=== PATIENT | female | born 1970 | race Caucasian/White ===

== ENCOUNTER 2017-09-10 15:18 | Emergency (ER) | payer MEDICAID ==
[2017-09-10 15:28] VITALS: PULSE 80; RESP 18; TEMP 98.4; O2SAT 100; BMI 35.2
[2017-09-10] MEDS ORDERED: DiphenhydrAMINE 50 mg/ml Inj IVP STA (16:03)
[2017-09-10] MEDS ORDERED: Sodium Chloride 0.9% 1,000 ML IV SCH (16:15)
[2017-09-10] MEDS ORDERED: SODIUM CHLORIDE 0.9% IV STA (16:23)
[2017-09-10] MEDS ORDERED: METOCLOPRAMIDE IV STA (16:23)
[2017-09-10 16:43] LABS: ALB/GLOB RATIO 1.2 (1.1-1.8); ALKALINE PHOSPHATASE 72 U/L (38-126); ALT/SGPT 37 U/L (7-56); AST/SGOT 26 U/L (14-36); BILIRUBIN,TOTAL 0.6 mg/dL (0.2-1.3); BLOOD UREA NITROGEN 11 mg/dL (7-21); CALCIUM 10.2 mg/dL (8.4-10.5); CARBON DIOXIDE 30 mmol/L (21-33); CHLORIDE 102 mmol/L (98-107); GFR AFRICAN-AMERICAN > 60; GLUCOSE,RANDOM 113 mg/dL (70-110); POTASSIUM 3.5 mmol/L (3.6-5.0); SODIUM 140 mmol/L (132-148); TOTAL PROTEIN 8.4 g/dL (5.8-8.3)
[2017-09-10 16:52] LABS: BASO # 0.1 K/mm3 (0.0-2.0); BASO % 1.2 % (0.0-3.0); EOS # 0.3 (0.0-0.7); EOS % 3.3 % (1.5-5.0); GRAN # 5.68 (1.4-6.5); GRAN % 69.7 % (50.0-68.0); HEMATOCRIT 42.8 % (36.0-48.0); LYMPH # 1.6 (1.2-3.4); LYMPH % 19.8 % (22.0-35.0); MEAN CELL VOLUME 85.6 fl (80.0-105.0); MEAN CORPUSCULAR HGB CONC 33.9 g/dl (31.0-37.0); MEAN PLATELET VOLUME 10.5 fl (7.0-11.0); MONO # 0.5 (0.1-0.6); RED CELL DISTRIBUTION WIDTH 12.8 % (11.5-14.5); WHITE BLOOD COUNT 8.2 10^3/ul (4.5-11.0)
[2017-09-10] MEDS ORDERED: Potassium Chloride 20 mEq/15 ml LIQ UD PO STA (16:59)
--- NOTE | 2017-09-10 17:02 | ED PDOC ---
Arrival/HPI - General Chief Complaint: High Blood Pressure Time Seen by Provider: 09/10/17 15:34 Historian: Patient - History of Present Illness Narrative History of Present Illness (Text): 09/10/17 16:59 Patient with past medical history of hypertension, reports 1 day h/o gradual onset of throbbing R sided headache associated with numbness to the head and palpitations. 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 Otherwise: (-) thunderclap headache, (-) worse headache of life, (-) nausea, (-) vomiting, (-) photophobia , (-) phonophobia, (-) URI symptoms, (-) fever, (-) trauma, (-) recent travel, ( -) CP, (-) SOB, (-) subjective neurologic symptoms. PMD Thomas Past Medical History - Provider Review Nursing Documentation Reviewed: Yes - Infectious Disease Hx of Infectious Diseases: None - Cardiac Hx Hypertension: Yes - Endocrine/Metabolic Hx Hypothyroidism: Yes - Psychiatric Hx Anxiety: Yes Hx Substance Use: No - Surgical History Hx Hysterectomy: Yes - Anesthesia Hx Anesthesia: Yes Hx Anesthesia Reactions: No Hx Malignant Hyperthermia: No Family/Social History - Physician Review Nursing Documentation Reviewed: Yes Family/Social History: Hypertension, Neoplasm/Cancer Smoking Status: Never Smoked Hx Alcohol Use: No Hx Substance Use: No Allergies/Home Meds Allergies/Adverse Reactions: Allergies No Known Allergies Allergy (Verified 09/10/17 15:34) Home Medications: Home Meds Medication Instructions Recorded Confirmed Levothyroxine [Levoxyl] 0.125 mg PO DAILY 07/16/16 09/10/17 amLODIPine [Norvasc] 5 mg PO DAILY 07/16/16 09/10/17 Review of Systems - Review of Systems Constitutional: Normal. absent: Fatigue, Weight Change, Fevers Eyes: Normal. absent: Vision Changes, Photophobia, Eye Pain ENT: Normal. absent: Sore Throat, Rhinorrhea, Sinus Congestion Respiratory: Normal. absent: SOB, Cough, Sputum Cardiovascular: Normal, Palpitations. absent: Chest Pain, Edema Skin: Normal. absent: Rash, Pruritis, Skin Lesions Neurological: Normal, Headache. absent: Dizziness, Focal Weakness Physical Exam - Physical Exam Narrative Physical Exam (Text): 09/10/17 17:02 GENERAL APPEARANCE: Patient is awake, alert, oriented x 3, in no acute distress. SKIN: Warm, dry; (-) cyanosis; (-) rash. HEAD: (-) scalp swelling or tenderness, (-) temporal artery tenderness. EYES: (-) conjunctival pallor, (-) scleral icterus. ENMT: (-) sinus tenderness; mucous membranes moist. NECK: (-) tenderness, (-) stiffness, (-) meningismus, (-) lymphadenopathy. CHEST AND RESPIRATORY: (-) rales, (-) rhonchi, (-) wheezes; breath sounds equal bilaterally. HEART AND CARDIOVASCULAR: (-) irregularity; (-) murmur, (-) gallop. ABDOMEN AND GI: Soft; (-) tenderness. EXTREMITIES: (-) deformity. NEURO AND PSYCH: Mental status as above. 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 Strength and DTRs symmetric. Babinski normal bilaterally. Vital Signs Temp Pulse Resp BP Pulse Ox 09/10/17 17:20 127/85 09/10/17 15:28 98.4 F 80 18 150/86 100 Medical Decision Making ED Course and Treatment: 09/10/17 17:01 47 yo F with past medical history of hypertension, reports 1 day h/o gradual onset of throbbing R sided headache associated with numbness to the head and palpitations. Plan : - CT head w/ contrast - IVF - Labs - Reglan IV - Benadryl IV - EKG EKG: NSR at 74 bpm, (-) acute ST changes, as read by KEVIN. Labs reviewed : K 3.5, rest of the labs are wnl. Patient given KCl mEq PO. On re-evaluation, patient is laying in bed comfortably in no acute distress. Patient reports significant improvement of her headache and wants to go home, denies any dizziness, N/V, CP, SOB or palpitations. Repeat BP 127/85. On exam, lungs cta, cardiac RRR, repeat neuro exam shows no focal findings. Based on history, exam and diagnostic results plan will be for outpatient follow up. Instructed to follow up with primary care physician in 1-2 days without fail. Advised to take medication as prescribed. Return to the emergency room at any time for any new or worsening symptoms. Patient states she fully agrees with and understands discharge instructions. States that she agrees with the plan and disposition. Verbalized and repeated discharge instructions and plan. I have given the patient opportunity to ask any additional questions. - Lab Interpretations Lab Results: 09/10/17 16:24 09/10/17 16:24 Lab Results 09/10/17 16:24: Sodium 140, Potassium 3.5 L, Chloride 102, Carbon Dioxide 30, Anion Gap 12, BUN 11, Creatinine 0.7, Est GFR ( Amer) > 60, Est GFR (Non- Af Amer) > 60, Random Glucose 113 H, Calcium 10.2, Total Bilirubin 0.6, AST 26, ALT 37, Alkaline Phosphatase 72, Total Protein 8.4 H, Albumin 4.6, Globulin 3.7 , Albumin/Globulin Ratio 1.2 09/10/17 16:24: WBC 8.2, RBC 5.00, Hgb 14.5, Hct 42.8, MCV 85.6, MCH 29.0, MCHC 33.9, RDW 12.8, Plt Count 335, MPV 10.5, Gran % 69.7 H, Lymph % (Auto) 19.8 L, Lamar % (Auto) 6.0, Eos % (Auto) 3.3, Baso % (Auto) 1.2, Gran # 5.68, Lymph # 1.6 , Lamar # 0.5, Eos # 0.3, Baso # 0.10 - Medication Orders Current Medication Orders: Discontinued Medications Diphenhydramine HCl (Benadryl) 25 mg IVP STAT STA Stop: 09/10/17 16:04 Last Admin: 09/10/17 16:27 Dose: 25 mg IVP Administration Document 09/10/17 16:27 GMD (Rec: 09/10/17 16:27 GMD [facility] [id number] Charges for Administration # of IVP Administrations 1 Sodium Chloride (Sodium Chloride 0.9%) 1,000 mls @ 150 mls/hr IV .[id number] NOEMI Last Admin: 09/10/17 16:28 Dose: 150 mls/hr eMAR Start Stop Document 09/10/17 16:28 GMD (Rec: 09/10/17 16:28 GMD [facility] [id number] Intravenous Solution Start Date 09/10/17 Start Time 16:28 Metoclopramide HCl 10 mg/ (Sodium Chloride) 102 mls @ 200 mls/hr IV STAT STA Stop: 09/10/17 16:53 Last Admin: 09/10/17 16:36 Dose: Potassium Chloride (Potassium Chloride Oral Soln) 20 meq PO STAT STA Stop: 09/10/17 17:00 Last Admin: 09/10/17 17:09 Dose: 20 meq - 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 Disposition/Present on Arrival - Present on Arrival Any Indicators Present on Arrival: No History of DVT/PE: No History of Uncontrolled Diabetes: No Urinary Catheter: No History of Decub. Ulcer: No History Surgical Site Infection Following: None - Disposition Have Diagnosis and Disposition been Completed?: Yes Diagnosis: Headache Disposition: HOME/ ROUTINE Disposition Time: 17:10 Patient Plan: Discharge Condition: IMPROVED Discharge Instructions (ExitCare): Migraine Headache (ED), Acute Headache (ED) Print Language: GREEK Additional Instructions: Thank you for letting us take care of you today. You were treated for headache, likely migraine. The emergency medical care you received today was directed at your acute symptoms. If you were prescribed any medication, please fill it and take as directed. It may take several days for your symptoms to resolve. Return to the Emergency Department if your symptoms worsen, do not improve, or if you have any other problems. Please contact your doctor in 2 days for re-evaluation and follow up. Bring any paperwork you were given at discharge with you along with any medications you are taking to your follow up visit. Our treatment cannot replace ongoing medical care by a primary care provider (PCP) outside of the emergency department. Thank you for allowing the [facility] team to be part of your care today. Prescriptions: Metoclopramide HCl [Reglan] 10 mg PO QID PRN #20 tablet PRN Reason: Headache Referrals: [facility], [Primary Care Provider] - Follow up with primary Forms: All My Data ([place]orran)
[2017-09-10 17:20] VITALS: BP 127/85
--- NOTE | 2017-09-12 10:17 | CARD ---
APPROVED REPORT EKG Measurement Heart [id number] ID [id number] <Conclusion> Normal sinus rhythm Normal ECG
== END 2017-09-10 17:32 | disposition home or self-care (01) ==
LOC: ED 15:18
DX: R51 Headache (principal); E03.9 Hypothyroidism, unspecified; I10 Essential (primary) hypertension
CPT/HCPCS: 80053; 85025; 93005; 96374; 99285; J1200; J2765; J7040